=== PATIENT | female | born 1980 | race Caucasian/White ===

== ENCOUNTER 2023-07-30 22:36 | Emergency (ER) | payer BC ==
[~2023-07-30] VITALS: Ht 167.6 cm; Wt 72.7 kg
[2023-07-30 22:48] VITALS: BP 105/61; PULSE 78; RESP 16; TEMP 97.7
[2023-07-30] MEDS ORDERED: AMOX250C4 PO (23:25)
[2023-07-30] MEDS ORDERED: MOXI3DRO25 OD (23:26)
[2023-07-30 23:35] LABS: COVID AG,FIA SOURCE NASAL SWAB
[2023-07-30 23:43] LABS: SARS-COV2 (COVID) ANTIGEN,FIA Negative (Negative)
== END 2023-07-30 23:33 | disposition home or self-care (01) ==
LOC: EMS 22:40
DX: H10.9 Unspecified conjunctivitis (principal); J32.9 Chronic sinusitis, unspecified; Z20.822 Contact with and (suspected) exposure to COVID-19; Z98.890 Other specified postprocedural states
CPT/HCPCS: 99283